=== PATIENT | female | born 1975 | race African-American/Black ===

== ENCOUNTER 2023-05-21 06:48 | Day surgery (SDC) | payer OTHER ==
[2023-05-14 11:27] VITALS: BMI 28.5
[2023-05-21] MEDS ORDERED: PROPOFOL 120 ML ONE (07:44)
[2023-05-21 09:03] VITALS: TEMP 96.9
[2023-05-21 09:05] VITALS: BP 112/74; PULSE 72; RESP 19
== END 2023-05-21 09:17 | disposition home or self-care (01) ==
LOC: FASU-ENDO 06:48
PROVIDERS: ATTEND Internal Medicine Gastroenterology
PROC: 0DJD8ZZ Inspection of Lower Intestinal Tract, Via Natural or Artificial Opening Endoscopic (ICD-10-PCS; principal; 2023-05-21 08:24)
DX: Z12.11 Encounter for screening for malignant neoplasm of colon (principal); Z80.0 Family history of malignant neoplasm of digestive organs
CPT/HCPCS: 81025